=== PATIENT | female | born 1985 | race African-American/Black ===

== ENCOUNTER 2019-05-14 07:18 | Day surgery (SDC) | payer OTHER ==
[~2019-05-14] VITALS: Ht 157.5 cm; Wt 98.8 kg
[~2019-05-14 07:18] MED LIST: PREN1TAB9 PO; SAME
[2019-05-14 08:32] VITALS: Ht 157.5 cm; Wt 98.8 kg
[2019-05-14 12:40] VITALS: BP 126/68; PULSE 59; RESP 18
== END 2019-05-14 14:15 | disposition home or self-care (01) ==
LOC: SDS 07:18
PROVIDERS: ATTEND Podiatrist Foot & Ankle Surgery
DX: M20.12 Hallux valgus (acquired), left foot (principal); M21.612 Bunion of left foot; J45.909 Unspecified asthma, uncomplicated; E66.01 Morbid (severe) obesity due to excess calories; Z68.41 Body mass index [BMI] 40.0-44.9, adult
CPT/HCPCS: 28299; 73630; J0690; J1100; J1170; J2175; J2250; J2405; J2765; J3010; Z7512; Z7610; 88304; 88311